=== PATIENT | male | born 1960 | race Caucasian/White ===

== ENCOUNTER 2017-12-08 13:13 | Emergency (ER) | payer OTHER ==
[~2017-12-08] VITALS: Ht 172.7 cm; Wt 86.2 kg
[2017-12-08 13:50] LABS: ABSOLUTE BASOPHIL COUNT 0 /CUMM (0.0-0.2); ABSOLUTE EOSINOPHIL COUNT 0.1 /CUMM (0.0-0.7); ABSOLUTE GRANULOCYTE CT 7.5 /CUMM (1.4-6.5); ABSOLUTE LYMPH COUNT 1.2 /CUMM (1.2-3.4); ABSOLUTE MONOCYTE COUNT 0.6 /CUMM (0.10-0.60); BASOPHIL % 0.3 % (0.0-2.0); EOSINOPHIL % 0.8 % (0-5); GRANULOCYTE % 79.3 % (42.2-75.2); HEMATOCRIT 42.8 % (42-52); MEAN CORPUSCULAR HGB 29.7 PG (27.0-31.0); MEAN CORPUSCULAR HGB CONC 33.3 G/DL (33.0-37.0); MEAN CORPUSCULAR VOLUME 89.2 FL (80.0-94.0); MEAN PLATELET VOLUME 9.3 FL (7.4-10.4); PLATELET COUNT 244 /CUMM (130-400); RBC DISTRIBUTION WIDTH 12.8 % (11.5-14.5); WHITE BLOOD CELL COUNT 9.5 /CUMM (4.8-10.8)
--- NOTE | 2017-12-08 13:54 | ED CARDIAC/CP/PALPITATIONS ---
History of Present Illness General Chief Complaint: Chest Pain Stated Complaint: CP X1 HOUR Source: patient Exam Limitations: no limitations Vital Signs & Intake/Output Vital Signs & Intake/Output Vital Signs Date Time Temp Pulse Resp B/P B/P Pulse O2 O2 Flow FiO2 Mean Ox Delivery Rate 12/08 1750 97.5 60 18 108/65 98 12/08 1404 99 Room Air 12/08 1354 97.6 61 18 107/80 98 Room Air ED Intake and Output 12/09 0000 12/08 1200 Intake Total 100 Output Total Balance 100 Intake, IV 100 Patient 190 lb Weight Weight Reported by Patient Measurement Method Allergies Coded Allergies: lisinopril (Severe, FACIAL EDEMA 12/08/17) Triage Note: 57M WITH 1 HOUR OF SUBSTERNAL DEEP CONSTANT CHEST PAIN, NON-RADIATING AND NON-REPRODUCIBLE THAT STARTED AFTER RUNNING A 5K MARATHON. HX OF PHYSICAL STRESS INDUCED ISCHEMIA, STENTS X5 AND OH. PAIN WAS 6/10, TOOK SLNG AT HOME WITH SLIGHT RELIEF AND RECEIVED ADDITIONAL DOSE EN ROUTE BY EMS WITH ALMOST COMPLETE RELIEF. CURRENT PAIN 1/10. DENIES N/V/D. DENIES SIGNIFICANT HEADACHE. DENIES NUMBNESS/PARASTHESIAS. TAKES DAILY FULL DOSE ASA AND METOPROLOL. EKG COMPLETED IN TRIAGE AND BLOOD DRAWN AND SENT TO LAB ([facility]). Triage Nurses Notes Reviewed? yes Onset: Gradual Duration: better, gone now Timing: single episode today Location: substernal Activities at Onset: activity HPI: Patient is a 57-year-old male with a past medical history of CAD with 6 cardiac stents placed patient's retail consultant Dr. Rosa, past medical history also includes hypertension and diabetes. He presents emergency room stating that patient is an avid runner where he runs every day today patient was in his normal state of health patient ran a 5 km run however he does state that there are more pills than usual and more exertion however 15 minutes after his run he had acute onset of substernal chest dull achy pain with radiation of pain to his left upper extremity. Patient's went home took 325 aspirin and nitroglycerin with no relief of pain. Patient called EMS services patient was given another tablet of sublingual nitroglycerin which completely resolved his pain. Patient currently resting comfortably at bedside denies any smoking history does drink alcohol on occasion denies any fever chills hemoptysis dyspnea on exertion leg swelling nausea vomiting. (Luis Salmeron) Past History Travel History Traveled to [place] past 21 day No Medical History Any Pertinent Medical History? see below for history Cardiovascular: CAD, hypertension, NSTEMI Endocrine: diabetes Surgical History Surgical History: ANGIOPLASTY Psychosocial History Who do you live with Spouse Services at Home None What is your primary language Georgian Family History Family History, If Any: FATHER (CAD at age of 52MI at age of 59). MOTHER (diabetes, HTN). Relation not specified for: FH: CAD (coronary artery disease) FH: diabetes mellitus FH: hypertension FH: myocardial infarction Hx Contributory? No (Luis Salmeron) Review of Systems Review of Systems Constitutional: Reports: no symptoms. EENTM: Reports: no symptoms. Respiratory: Reports: no symptoms. Cardiovascular: Reports: see HPI, chest pain. GI: Reports: no symptoms. Genitourinary: Reports: no symptoms. Musculoskeletal: Reports: no symptoms. Skin: Reports: no symptoms. Neurological/Psychological: Reports: no symptoms. Hematologic/Endocrine: Reports: no symptoms. Immunologic/Allergic: Reports: no symptoms. All Other Systems: Reviewed and Negative (Luis Salmeron) Physical Exam Physical Exam General Appearance: no apparent distress, alert, comfortable Head: atraumatic Eyes: Bilateral: normal appearance. Ears, Nose, Throat: hearing grossly normal Neck: normal inspection Respiratory: normal breath sounds, chest non-tender, no respiratory distress Cardiovascular: regular rate/rhythm Peripheral Pulses: 2+ radial (R) Gastrointestinal: normal bowel sounds, soft, non-tender Extremities: normal inspection, normal capillary refill Neurologic/Psych: no motor/sensory deficits, awake Core Measures ACS in differential dx? Yes CVA/TIA Diagnosis No Sepsis Present: No Sepsis Focused Exam Completed? No (Luis Salmeron) Progress Differential Diagnosis: AMI, aortic dissection, atrial fibrillation, cholecystitis, CHF/pulm edema, costochondritis, hyperkalemia, hypovolemia, hyperthyroid, hyperventilation, intracranial hemorrhage, musculoskeletal pain, myocarditis, pancreatitis, pericarditis, pneumonia, pneumothorax, PSVT, pulmonary embolism, PUD/GERD, PVCs/PACs, respiratory failure, rib fracture, sepsis, unstable angina, V-fib/V-Tach, WPW syndrome Diagnostic Imaging: Viewed by Me: Radiology Read. Radiology Impression: no acute abnormality Initial ED EK BPM, ST ELEVATION IN LEAD II, AVF Prior EKG: changed Repeat EKG: unchanged Comments: PATIENT: SHANDA MEYERS PRESENT AGE: 57 PATIENT ACCOUNT NO: [id number] : 56 LOCATION: [facility] ORDERING PHYSICIAN: Luis NAVARRETE SERVICE DATE: 12/08/17 EXAM TYPE: RAD - XRY-CHEST XRAY, TWO VIEWS EXAMINATION: XR CHEST CLINICAL INFORMATION: Chest pain. COMPARISON: Chest x-ray dated 10/17/2017. TECHNIQUE: 2 views of the chest were obtained. FINDINGS: The cardiomediastinal silhouette is within normal limits in size. Eventration of the anterior right hemidiaphragm is again seen, unchanged. The lungs are clear. No focal consolidation, effusion or pneumothorax is seen. Bony structures are unremarkable. IMPRESSION: Unremarkable examination. DICTATED BY: Adelaide Wild MD DATE/TIME DICTATED:12/08/171506 PERINATAL BREASTFEEDING ASSISTANT:MAYRA (Pj NAVARRETE,Luis) Plan of Care: Orders Procedure Date/time Status EKG 12/08 1700 Active TROPONIN LEVEL 12/08 1534 Complete EKG 12/08 1534 Active Add-on Test (ER Only) 12/08 1413 Active Telemetry/Volleyball Referee 12/08 1413 Active TROPONIN LEVEL 12/08 1320 Complete D-DIMER 12/08 1320 Complete COMPREHENSIVE METABOLIC PANEL 12/08 1320 Complete CBC WITHOUT DIFFERENTIAL 12/08 1320 Complete EKG 12/08 1319 Active Laboratory Tests 12/08/17 1700: Troponin I Cancelled 12/08/17 1550: Troponin I 0.02 12/08/17 1334: Anion Gap 11, Estimated GFR > 60, BUN/Creatinine Ratio 23.8, Glucose 106 H, Calcium 8.7, Total Bilirubin 1.8 H, AST 28, ALT 39, Alkaline Phosphatase 58, Troponin I < 0.01, Total Protein 6.8, Albumin 3.9, Globulin 2.9, Albumin/ Globulin Ratio 1.3, CBC w Diff NO MAN DIFF REQ, RBC 4.80, MCV 89.2, MCH 29.7, MCHC 33.3, RDW 12.8, MPV 9.3, Gran % 79.3 H, Lymphocytes % 13.1 L, Monocytes % 6.5, Eosinophils % 0.8, Basophils % 0.3, Absolute Granulocytes 7.5 H, Absolute Lymphocytes 1.2, Absolute Monocytes 0.6, Absolute Eosinophils 0.1, Absolute Basophils 0 12/08/17 1320: D-Dimer High Sensitivty < 200 1356- Patient was therapeutic of aspirin prior to arrival traffic monitor specialist placed there is concerns of ST elevation in lead 2 I discussed patient and EKG concerns with Dr. OBRIEN was aware of concerns of ST elevation and patient's chest pain and past medical history of cardiac stents and angioplasty and CAD where she evaluated patient's EKG and advised patient to be given heparin and BRILINTA and be admitted to [facility] for concerns of unstable angina. 1453- patient was reevaluated again resting comfortable at bedside denies any chest pain I reviewed all blood work with patient initial troponin and d-dimer are unremarkable. 1733- Dr. KERNS discussed patient with retail consultant hospitalist who advised patient to be transferred to [place] for cardiac catheterization. Patient's repeat troponin was unremarkable EKG still shows ST elevation Patient still asymptomatic of pain patient signed transfer paperwork (Luis Salmeron) Comments: Discussion with Dr. Rhodes and Anirudh patient would be better served at institution capable of urgent/emergent PCI. [facility] Dr. Zhao accepts patient in transfer to [facility] for further evaluation and management. (Indra Kerns MD) Departure Departure Disposition: OTHER [facility] (ACUTE) Condition: Guarded Clinical Impression Primary Impression: Unstable angina Secondary Impressions: ST elevation Referrals: Harman PITT,Mark Thomas (PCP/Family) Departure Forms: Customer Survey General Discharge Information (Luis Salmeron) PA/MANAGER PATHOLOGY Co-Sign Statement Statement: ED Attending supervision documentation- x I saw and evaluated the patient. I have also reviewed all the pertinent lab results and diagnostic results. I agree with the findings and the plan of care as documented in the PA's/MANAGER PATHOLOGY's documentation. After 5K run developed SSCP relieved with NTG and ST elevation in II, F. Currently painfree and comfortable. [] I have reviewed the ED Record and agree with the PA's/MANAGER PATHOLOGY's documentation. [] Additions or exceptions (if any) to the PAs/MANAGER PATHOLOGY's note and plan are summarized below: [] (Indra Kerns MD) Critical Care Note Critical Care Note Critical Care Time: 30-74 min (Luis Salmeron)
--- NOTE | 2017-12-08 15:11 | RADIOLOGY REPORT ---
EXAMINATION: XR CHEST CLINICAL INFORMATION: Chest pain. COMPARISON: Chest x-ray dated 10/17/2017. TECHNIQUE: 2 views of the chest were obtained. FINDINGS: The cardiomediastinal silhouette is within normal limits in size. Eventration of the anterior right hemidiaphragm is again seen, unchanged. The lungs are clear. No focal consolidation, effusion or pneumothorax is seen. Bony structures are unremarkable. IMPRESSION: Unremarkable examination.
[2017-12-08 17:50] VITALS: BP 108/65
== END 2017-12-08 18:41 | disposition short-term general hospital (02) ==
LOC: ERH 13:13
PROVIDERS: Emergency Medicine
DX: I20.0 Unstable angina (principal); R07.89 Other chest pain
CPT/HCPCS: 71046; 93005; 93010; 96374; 99291; J1644; J3490